=== PATIENT | male | born 1980 | race Caucasian/White ===

== ENCOUNTER 2020-12-08 13:04 | Emergency (ER) | payer OTHER ==
[~2020-12-08] VITALS: Ht 177.8 cm; Wt 64.4 kg
[2020-12-08 14:19] LABS: RED BLOOD COUNT 4.24 M/UL (4.20-5.50); WHITE BLOOD COUNT 7.6 K/UL (4.5-11.0)
[2020-12-08 14:43] LABS: BUN/CREATININE RATIO 7 (0-10)
== END 2020-12-09 01:12 | disposition left against medical advice (07) ==
LOC: ER1 13:04 → CDU 20:10
PROVIDERS: Student in an Organized Health Care Education/Training Program
DX: M00.861 Arthritis due to other bacteria, right knee (principal); M86.8X6 Other osteomyelitis, lower leg; Z20.822 Contact with and (suspected) exposure to COVID-19
CPT/HCPCS: 73562; 73721; 80053; 83605; 85025; 85652; 86140; 87040; 96365; 96375; 99284; G0378; J2185; J2270; J3370; J7030; J7070; U0002